=== PATIENT | male | born 1985 | race Caucasian/White ===

== ENCOUNTER 2019-07-13 18:07 | Emergency (ER) | payer SELFPAY ==
[~2019-07-13] VITALS: Ht 172.7 cm; Wt 84.8 kg
--- NOTE | 2019-07-13 18:32 | NUR ---
CAME IN FOR SOB SINCE THIS MORNING, STATES HX OF ASTHMA. NOT IN RESPIRATORY DISTRESS WHILE BEING TRIAGE. TO ER BED 10, HOOKED TO MONITOR, WARM BLANKET PROVIDED, AWAITING MD PASTRANA
--- NOTE | 2019-07-13 18:34 | NUR ---
CUBA MARTINEZ AT BEDSIDE
--- NOTE | 2019-07-13 18:51 | NUR ---
REFUSED BLOOD DRAW. MADE CUBA MARTINEZ AWARE.
[2019-07-13] MEDS ORDERED: predniSONE 20 MG TABLET ONE (18:53)
[2019-07-13] MEDS ORDERED: predniSONE 20 MG TABLET PO ONE (19:00)
[2019-07-13 19:14] VITALS: BP 132/88
[2019-07-13] MEDS: IPRATROPIUM NEB FS 0.5 MG/2.5 ML AMPUL.NEB NEB ONE ×2 (19:15→19:33)
[2019-07-13] MEDS: ALBUTEROL FS 2.5 MG/3 ML VIAL.NEB NEB ONE ×2 (19:15→19:33)
[2019-07-13] MEDS ORDERED: ALBUTEROL FS 2.5 MG/3 ML VIAL.NEB ONE (19:27)
[2019-07-13] MEDS ORDERED: IPRATROPIUM NEB FS 0.5 MG/2.5 ML AMPUL.NEB ONE (19:27)
--- NOTE | 2019-07-13 19:29 | NUR ---
PATIENT REFUSED BREATHING TREATMENT, PA JUAN BARRAZA
--- NOTE | 2019-07-13 19:33 | NUR ---
Patient does not wish to proceed with medical care recommended by CUBA Beltran. Patient given information related to possible complications, up to and including , which could occur as a result of leaving the hospital at this time. Patient verbalizes understanding of risks involved due to leaving against medical advice. Patient has signed AMA form.
== END 2019-07-13 19:35 | disposition left against medical advice (07) ==
LOC: ER 18:09
DX: R06.2 Wheezing (principal); F31.9 Bipolar disorder, unspecified; F20.9 Schizophrenia, unspecified
CPT/HCPCS: 71045; 94640; 99283; J7512